=== PATIENT | female | born 1940 | race Two or more races ===

== ENCOUNTER 2018-08-11 08:16 | Outpatient (CLI) | payer OTHER | END 2018-08-11 14:46 | disposition home or self-care (01) | LOC: NUCLEAR 08:16 | DX: I72.6 Aneurysm of vertebral artery (principal); I87.2 Venous insufficiency (chronic) (peripheral); I10 Essential (primary) hypertension; I73.9 Peripheral vascular disease, unspecified ==

== ENCOUNTER 2018-08-12 07:46 | Outpatient (CLI) | payer OTHER | END 2018-08-12 07:59 | disposition home or self-care (01) | LOC: NUCLEAR 07:46 | DX: I87.2 Venous insufficiency (chronic) (peripheral) (principal); I72.6 Aneurysm of vertebral artery; I10 Essential (primary) hypertension; I73.9 Peripheral vascular disease, unspecified ==

== ENCOUNTER 2019-08-02 10:13 | Outpatient (CLI) | payer OTHER | END 2019-08-02 10:16 | disposition home or self-care (01) | LOC: RAD 10:13 | DX: M54.2 Cervicalgia (principal) ==

== ENCOUNTER → 2019-09-06 | Outpatient (CLI) | payer OTHER | END | disposition home or self-care (01) | LOC: MRI 09:15 | DX: M25.562 Pain in left knee (principal) | CPT/HCPCS: 73721 ==